=== PATIENT | male | born 1990 | race Caucasian/White ===

== ENCOUNTER 2017-03-26 21:27 | Emergency (ER) | payer SELFPAY ==
[~2017-03-26] VITALS: Ht 167.6 cm; Wt 61.8 kg
[2017-03-26 21:49] VITALS: Ht 167.6 cm; Wt 61.8 kg
--- NOTE | 2017-03-27 00:37 | ERD ---
ER Documentation Chief Complaint Chief Complaint Pt reports bilateral LE numbness for 1 hour HPI 27-year-old male presents here to emergency department for multiple complaints. Patient is complaining of lower back pain, bilateral lower numbness and tingling noted tonight. Patient describes the pain as sharp pain, succession scale, not better or worse with anything. Patient denies any hematuria or dysuria. Patient denies any fever chills. Patient also is complaining of blood streaks in the stool, patient does admit to be constipated and strains a lot upon defecating. Patient denies any black stool. Patient denies any abdominal pain. Patient denies any active rectal bleeding at this time. Patient has been having blood streaks in the stool on and off for the last month. ROS All systems reviewed and are negative except as per history of present illness. Medications Home Meds Reported Medications [none] Unknown Strength No Conflict Check 03/27/17 Allergies Allergies: Coded Allergies: No Known Allergy (Unverified , 03/26/17) PMhx/Soc Medical and Surgical Hx: pt denies Medical Hx, pt denies Surgical Hx FmHx Family History: No coronary disease, No diabetes, No other Physical Exam Vitals Vital Signs Date Time Temp Pulse Resp B/P Pulse Ox O2 Delivery O2 Flow Rate FiO2 03/26/17 21:49 98.6 79 16 121/75 100 Physical Exam GENERAL: The patient is well developed and appropriate for usual state of health, in no apparent distress. CHEST: Clear to auscultation bilaterally. There are no rales, wheezes or rhonchi. HEART: Regular rate and rhythm. No murmurs, clicks, rubs or gallops. No S3 or S4. ABDOMEN: Soft, nontender and nondistended. Good bowel sounds. No rebound or guarding. No gross peritonitis. No gross organomegaly or masses. No Mojica sign or McBurney point tenderness. BACK: No midline or flank tenderness. Positive right and left straight leg test. EXTREMITIES: Equal pulses bilaterally. There is no peripheral clubbing, cyanosis or edema. No focal swelling or erythema. Full range of motion. Grossly neurovascularly intact. NEURO: Alert and oriented. Cranial nerves 2-12 intact. Motor strength in all 4 extremities with 5/5 strength. Sensation grossly intact. Normal speech and gait. SKIN: There is no apparent rash or petechia. The skin is warm and dry. HEMATOLOGIC AND LYMPHATIC: There is no evidence of excessive bruising or lymphedema. No gross cervical, axillary, or inguinal lymphadenopathy. Results 24 hrs PROCEDURE: CT Lumbar Spine without intravenous contrast CLINICAL INDICATION: Low back pain, bilateral lower extremity tingling and numbness. COMPARISON: None available. TECHNIQUE: Axial noncontrast CT images of the lumbar spine with coronal and sagittal reformats. DOSE ESTIMATE: CTDI vol = 6.81 mGy. DLP = 232.43 mGy-cm. One or more of the following dose reduction techniques were used: automated exposure control, adjustment of the mA and/or kV according to patient size, or use of iterative reconstruction. DICOM images are available. FINDINGS: Segmentation: For this report the last well-formed disc is labeled L5-S1. Alignment: 3 mm retrolisthesis of L4 relative to L5. There is a 5 mm grade 1 spondylolisthesis of L5 relative to S1 with associated bilateral L5 pars interarticularis defects. Vertebrae: No fracture, vertebral body height loss, or destructive bone lesion. Discs: Mild disc space loss L4-L5 and L5-S1. Degenerative change: T12-L1: No disc herniation. No spinal canal or foraminal narrowing. L1-L2: No disc herniation. No spinal canal or foraminal narrowing. L2-L3: No disc herniation. No spinal canal or foraminal narrowing. L3-L4: No disc herniation. No spinal canal or foraminal narrowing. L4-L5: 2 mm mild diffuse bulge of the posterior annulus without herniation. The central canal and foramina are adequately patent. L5-S1: Disc infolding measuring 5 mm eccentric to the right of midline is associated with a grade 1 spondylolisthesis of L5 relative to S1. Disc contacts the traversing left S1 nerve root on axial image 90 . There is no posterior nerve root displacement or compression. There is loss to caudal subluxation of the facet joints with associated mild bilateral foraminal narrowing. Para-vertebral soft tissues: Normal. Visualized abdomen and pelvis: Normal. Additional comment: None. IMPRESSION: 1. 5 mm spondylolisthesis of L5 relative since 1 with associated bilateral L5 pars interarticularis defects. Associated disc unfolding measuring 5 mm is present eccentric to the right of midline. There is contact of the traversing left is 1 nerve root without posterior displacement or compression. 2. L5-S1: Mild bilateral foraminal narrowing without exiting root impingement. 3. L4-5: 2 mm mild diffuse bulge of the posterior annulus without herniation. 4. Mild disc space loss L4-5 and L5-S1. RPTAT: HRSR Physician Cyndee Date Time Electronically viewed and signed by Seth Calixto Physician on 03/27/2017 02 :51 Procedures/[facility] Medical Decision Making: Patient's pain is most likely consistent with a back pain consistent with degenerative disc disease causing sciatica. There is no suspicion for neurovascular compromise. Patient has intact sensation and circulation of the affected extremity and distal extremities. No incontinence, no suspicion for cauda equina syndrome, no saddle anesthesia, no symptoms of any acute bacterial infection, no symptoms of any perirectal abscesses, pilonidal cyst.There is low suspicion for septic arthritis. Patient does not have any fever. No symptoms of any aortic dissection or aortic aneurysm. Radiology exam does not show any fracture or dislocation Disposition: Home. Patient is given prescription for ibuprofen for mild to moderate pain, Effie for severe pain, gabapentin for nerve pain. Patient was advised to avoid heavy lifting , apply warm compresses on affected area. Patient was advised that if symptoms are worse, numbness, tingling, high fever, unable to move joint, worsening symptoms, to return to emergency department immediately. Otherwise, patient is advised to follow up with the primary care doctor in 5-7 days for reevaluation of symptoms. Disclaimer: Inadvertent spelling and grammatical errors are likely due to EHR/ dictation software use and do not reflect on the overall quality of patient care. Also, please note that the electronic time recorded on this note does not necessarily reflect the actual time of the patient encounter. Departure Diagnosis: Primary Impression: Degenerative disc disease Spinal region: lumbosacral Qualified Code: M51.37 - Degeneration of intervertebral disc of lumbosacral region Additional Impression: Back pain Back pain location: low back pain Chronicity: acute Back pain laterality: bilateral Sciatica presence: with sciatica Sciatica laterality: bilateral sciatica Qualified Code: M54.42 - Acute bilateral low back pain with bilateral sciatica Condition: Stable Patient Instructions: Back Pain W/ Sciatica, Degenerative Disk Disease Additional Instructions: Patient is given prescription for ibuprofen for mild to moderate pain, Effie for severe pain, gabapentin for nerve pain. Patient was advised to avoid heavy lifting , apply warm compresses on affected area. Patient was advised that if symptoms are worse, numbness, tingling, high fever, unable to move joint, worsening symptoms, to return to emergency department immediately. Otherwise, patient is advised to follow up with the primary care doctor in 5-7 days for reevaluation of symptoms. JESUS GERARDO NP Mar 27, 2017 00:37
--- NOTE | 2017-03-27 02:51 | RADRPT ---
PROCEDURE: CT Lumbar Spine without intravenous contrast CLINICAL INDICATION: Low back pain, bilateral lower extremity tingling and numbness. COMPARISON: None available. TECHNIQUE: Axial noncontrast CT images of the lumbar spine with coronal and sagittal reformats. DOSE ESTIMATE: CTDI vol = 6.81 mGy. DLP = 232.43 mGy-cm. One or more of the following dose reducti on techniques were used: automated exposure control, adjustment of the mA and/or kV according to pat ient size, or use of iterative reconstruction. DICOM images are available. FINDINGS: Segmentation: For this report the last well-formed disc is labeled L5-S1. Alignment: 3 mm retrolisthesis of L4 relative to L5. There is a 5 mm grade 1 spondylolisthesis of L5 relative to S1 with associated bilateral L5 pars interarticularis defects. Vertebrae: No fracture, vertebral body height loss, or destructive bone lesion. Discs: Mild disc space loss L4-L5 and L5-S1. Degenerative change: T12-L1: No disc herniation. No spinal canal or foraminal narrowing. L1-L2: No disc herniation. No spinal canal or foraminal narrowing. L2-L3: No disc herniation. No spinal canal or foraminal narrowing. L3-L4: No disc herniation. No spinal canal or foraminal narrowing. L4-L5: 2 mm mild diffuse bulge of the posterior annulus without herniation. The central canal and fo ramina are adequately patent. L5-S1: Disc infolding measuring 5 mm eccentric to the right of midline is associated with a grade 1 spondylolisthesis of L5 relative to S1. Disc contacts the traversing left S1 nerve root on axial haseeb ge 90 . There is no posterior nerve root displacement or compression. There is loss to caudal sublux ation of the facet joints with associated mild bilateral foraminal narrowing. Para-vertebral soft tissues: Normal. Visualized abdomen and pelvis: Normal. Additional comment: None. IMPRESSION: 1. 5 mm spondylolisthesis of L5 relative since 1 with associated bilateral L5 pars interarticularis defects. Associated disc unfolding measuring 5 mm is present eccentric to the right of midline. The re is contact of the traversing left is 1 nerve root without posterior displacement or compression. 2. L5-S1: Mild bilateral foraminal narrowing without exiting root impingement. 3. L4-5: 2 mm mild diffuse bulge of the posterior annulus without herniation. 4. Mild disc space loss L4-5 and L5-S1. RPTAT: HRSR Seth Calixto Physician Date Time Electronically viewed and signed by Seth Calixto Physician on 03/27/2017 02:51 RR/
[2017-03-27] MEDS ORDERED: GABA300C16 PO (03:06)
[2017-03-27] MEDS ORDERED: HYDR-906 PO (03:06)
[2017-03-27] MEDS ORDERED: IBUP-1542 PO (03:06)
== END 2017-03-27 03:49 | disposition home or self-care (01) ==
LOC: FTE 21:27
DX: M51.37 Other intervertebral disc degeneration, lumbosacral region (principal); M54.42 Lumbago with sciatica, left side
CPT/HCPCS: 72131